=== PATIENT | male | born 1995 | race Two or more races ===

== ENCOUNTER 2016-12-01 10:43 | Emergency (ER) | payer MEDICAID ==
[~2016-12-01] VITALS: Ht 177.8 cm; Wt 90.7 kg
[2016-12-01 11:00] VITALS: BP 142/92
== END 2016-12-01 11:55 | disposition home or self-care (01) ==
LOC: ER 10:43
DX: S02.2XXA Fracture of nasal bones, initial encounter for closed fracture (principal); W21.01XA Struck by football, initial encounter; Y93.66 Activity, soccer; Y99.8 Other external cause status; Y92.89 Other specified places as the place of occurrence of the external cause
CPT/HCPCS: 70160